=== PATIENT | female | born 1980 | race African-American/Black ===

== ENCOUNTER 2016-11-21 11:04 | Emergency (ER) | payer MEDICAID ==
[~2016-11-21] VITALS: Ht 167.6 cm; Wt 124.7 kg
[2016-11-21] MEDS ORDERED: LORazepam 2MG/ML-1ML VIAL IM ONE (12:00)
[2016-11-21 12:24] LABS: Basophils # (auto) 0 uL; Basophils % (auto) 0.4 % (0.0-2.0); DEFINITIVE VIEW TRANSMISSION; Eosinophils # (auto) 0 uL; Eosinophils % (auto) 0.5 % (0.0-7.0); Hematocrit 31.4 % (36.0-46.0); Hemoglobin 9.6 g/dL (12.2-16.2); Lymphocytes # (auto) 2.6 uL; Lymphocytes % (auto) 37.7 % (10.0-50.0); Mean Corpuscular Hemoglobin 20.7 pg (28.0-32.0); Mean Corpuscular Hgb Conc. 30.8 g/dL (32.0-36.0); Mean Corpuscular Volume 67.2 fL (80.0-100.0); Monocytes # (auto) 0.7 uL; Monocytes % (auto) 10.3 % (0.0-12.0); Neutrophils # (auto) 3.5 uL; Neutrophils % (auto) 51.1 % (37.0-80.0); Platelet Count (auto) 428 10^3/uL (140-450); Red Cell Distribution Width 17.7 % (11.6-16.0); White Blood Cell 6.8 10^3/uL (4.4-10.8)
[2016-11-21 12:54] LABS: Albumin 3.2 g/dL (3.4-5.0); Alkaline Phosphatase 62 U/L (45-117); Anion Gap 8 (5-15); Aspartate Aminotransferase 8 U/L (15-37); BUN/Creatinine Ratio 18.8; Bilirubin, Total 0.3 mg/dL (0.2-1.0); Blood Urea Nitrogen 9 mg/dL (7-18); Calcium 8.7 mg/dL (8.5-10.1); Carbon Dioxide 25 mmol/L (21-32); Chloride 108 mmol/L (98-107); GFR African American 189 mL/min; GFR Non-African American 156 mL/min; Glucose 89 mg/dL (74-106); Potassium 3.7 mmol/L (3.5-5.1); Sodium 141 mmol/L (136-145); Total Protein 7.5 g/dL (6.4-8.2)
[2016-11-21 14:16] VITALS: BP 141/83
== END 2016-11-21 15:56 | disposition home or self-care (01) ==
LOC: ER 11:04
DX: F45.8 Other somatoform disorders (principal); F41.9 Anxiety disorder, unspecified; D64.9 Anemia, unspecified; F12.10 Cannabis abuse, uncomplicated
CPT/HCPCS: 36415; 70450; 71020; 80053; 84484; 84702; 85025; 93005; 96372; 99285; J2060

== ENCOUNTER 2020-08-05 20:12 | Emergency (ER) | payer MEDICAID ==
[~2020-08-05] VITALS: Ht 167.6 cm; Wt 113.4 kg
[2020-08-05 20:19] VITALS: BP 132/87
[2020-08-06] MEDS ORDERED: cefTRIAXone SOD 1,000 MG VL IM ONE (01:30)
[2020-08-06] MEDS ORDERED: IBUPROFEN 800 MG TAB PO ONE (01:30)
== END 2020-08-06 01:50 | disposition home or self-care (01) ==
LOC: ER 20:14
DX: L03.012 Cellulitis of left finger (principal)
CPT/HCPCS: 73140; 96372; 99283; J0696

== ENCOUNTER 2021-10-27 13:49 | Emergency (ER) | payer MEDICAID ==
[~2021-10-27] VITALS: Ht 167.6 cm; Wt 99.8 kg
[2021-10-27] MEDS ORDERED: HYDROcodone-ACET 10/325MG TAB PO ONE (18:45)
[2021-10-27] MEDS ORDERED: IBUP800T26 PO (19:59)
[2021-10-27] MEDS ORDERED: HYDR-4902 PO (19:59)
[2021-10-27] MEDS ORDERED: HYDROcodone-ACET 5/325MG TAB PO ONE (20:00)
[2021-10-27 20:30] VITALS: BP 128/73
== END 2021-10-27 20:36 | disposition home or self-care (01) ==
LOC: ER 13:49
DX: S82.832A Other fracture of upper and lower end of left fibula, initial encounter for closed fracture (principal); Z79.1 Long term (current) use of non-steroidal anti-inflammatories (NSAID); Z79.899 Other long term (current) drug therapy; W18.39XA Other fall on same level, initial encounter; Y93.89 Activity, other specified; Y92.89 Other specified places as the place of occurrence of the external cause; Y99.8 Other external cause status
CPT/HCPCS: 29515; 73610

== ENCOUNTER 2022-05-24 22:28 | Emergency (ER) | payer MEDICAID ==
[~2022-05-24 22:28] MED LIST: HYDR-4902 PO; IBUP800T26 PO
[2022-05-25] MEDS ORDERED: SODIUM CHLORIDE 0.9% 1,000 ML IV ONE (00:15)
[2022-05-25] MEDS ORDERED: HYDROmorphone HCL 2 MG/ML VL/or syr IV ONE (00:15)
[2022-05-25] MEDS ORDERED: ONDANSETRON HCL 4 MG/2 ML VIAL IV ONE (00:15)
[2022-05-25 00:45] LABS: Basophils # (auto) 0.1 10 ^3/uL (0-0.2); Basophils % (auto) 0.8 % (0.0-2.0); Eosinophils # (auto) 0.1 10 ^3/uL (0-0.8); Eosinophils % (auto) 1.3 % (0.0-7.0); Hematocrit 39.8 % (36.0-46.0); Hemoglobin 13.3 g/dL (12.2-16.2); Lymphocytes # (auto) 1.4 10 ^3/uL (0.4-5.4); Lymphocytes % (auto) 20.5 % (10.0-50.0); Mean Corpuscular Hgb Conc. 33.3 g/dL (32.0-36.0); Mean Corpuscular Volume 83.9 fL (80.0-100.0); Monocytes # (auto) 0.6 10 ^3/uL (0-1.3); Monocytes % (auto) 8.7 % (0.0-12.0); Neutrophils # (auto) 4.8 10 ^3/uL (1.6-8.6); Neutrophils % (auto) 68.7 % (37.0-80.0); Red Blood Cells 4.74 10^6/uL (4.0-5.20); Red Cell Distribution Width 14.3 % (11.8-14.3)
[2022-05-25 01:03] LABS: Albumin 3.4 g/dL (3.4-5.0); BUN/Creatinine Ratio 22.9; Potassium 4.1 mmol/L (3.5-5.1)
[2022-05-25 01:06] LABS: Bilirubin, Total 0.2 mg/dL (0.2-1.0); Total Protein 6.8 g/dL (6.4-8.2)
[2022-05-25] MEDS ORDERED: HYDROcodone-ACET 10/325MG TAB PO ONE (02:30)
[2022-05-25] MEDS ORDERED: HYDR-4798 PO (03:30)
[2022-05-25 03:50] VITALS: BP 110/52
[2022-05-26] MEDS ORDERED: IBU600T PO (10:47)
[2022-05-26] MEDS ORDERED: HYDR-4902 PO (10:47)
== END 2022-05-25 04:01 | disposition home or self-care (01) ==
LOC: ER 22:28
DX: O03.4 Incomplete spontaneous abortion without complication (principal); Z79.1 Long term (current) use of non-steroidal anti-inflammatories (NSAID); Z79.899 Other long term (current) drug therapy; Z3A.09 9 weeks gestation of pregnancy
CPT/HCPCS: 36415; 76801; 76817; 80053; 84702; 85025; 86900; 86901; 96361; 96374; 99284; J2405

== ENCOUNTER 2022-05-26 06:44 | Emergency (ER) | payer MEDICAID ==
[~2022-05-26] VITALS: Ht 167.6 cm; Wt 104.0 kg
[2022-05-26 06:44] VITALS: BP 113/69
[~2022-05-26 06:44] MED LIST changes: +HYDR-4798 PO
[2022-05-26] MEDS ORDERED: HYDROcodone-ACET 10/325MG TAB PO ONE (08:45)
[2022-05-26] MEDS ORDERED: IBU600T PO (10:47)
[2022-05-26] MEDS ORDERED: HYDR-4902 PO (10:47)
== END 2022-05-26 11:05 | disposition home or self-care (01) ==
LOC: ER 06:44
DX: N93.9 Abnormal uterine and vaginal bleeding, unspecified (principal); R10.9 Unspecified abdominal pain